=== PATIENT | male | born 1970 | race Caucasian/White ===

== ENCOUNTER 2021-05-28 07:13 | Day surgery (SDC) | payer BC, OTHER ==
[~2021-05-28] VITALS: Ht 172.7 cm; Wt 93.0 kg
[~2021-05-28 07:13] MED LIST: TYLENOL325 M1 PO
[2021-05-28 08:43] VITALS: BP 134/89
[2021-05-28 13:40] VITALS: BP 134/89
--- NOTE | 2021-05-30 17:07 | PATH ---
[facility] [address] [place] [address] PATHOLOGY RPT PROCEDURE Name: JULIOCESAR GUTIÉRREZ Room #: DEP [facility] M.R.#: [id number] Admission: 05/28/21 Date of : 74 Discharge: 05/28/21 Report #: [id number] Path Case #: [id number] LCA Accession Number: [id number] . 01 Material submitted: . elbow - RIGHT OLECRANON ENTHESEPHYTE. Modifiers: right . 01 Clinician provided ICD-10: S53.491A M25.521 . 01 Clinical history: . ARTHROSCOPY ELBOW APPLICATION SPLINT . 02 Diagnosis: Right olecranon enthesophyte, arthroscopy: - Fragment of reactive chondroosseous tissue. (IUV:pit; 05/30/2021) QTP 05/30/2021 1308 Local . 02 Electronically signed: . Keerthi Foster MD, Pathologist NPI- [id number] . 01 Gross description: . The specimen is received in formalin, labeled "Juliocesar Gutiérrez and right olecranon enthesephyte". It consists of a teague-white, irregular firm bony fragment measuring 2.0 x 1.6 x 0.6 cm. Financial Analyst Intern sections are submitted in A1 following decalcification. (MRF; 05/28/2021) MFE/MFE 05/28/2021 1729 Local . 02 Pathologist provided ICD-10: S53.491A, M25.521 . 02 CPT . 312833, [id number] Specimen Comment: A courtesy copy of this report has been sent to [phone] Specimen Comment: [id number] Specimen Comment: Report sent to / DR MYERS Performed at: [address] [id number] MD Ryan Esteves MD Phone: [phone] Performed at: [address] [address] PATHOLOGY RPT PROCEDURE Name: JULIOCESAR GUTIÉRREZ Room #: DEP [facility] Nilam#: [id number] Admission: 05/28/21 Date of : 74 Discharge: 05/28/21 Report #: [id number] Path Case #: [id number] [address] [id number] MD Keerthi Foster MD Phone: [phone]
--- NOTE | 2021-06-03 06:49 | O ---
[facility] [place] [address] OPERATIVE REPORT Name: CORDELL TALLEY Room #: DEP [facility] M.R.#: [id number] Admission: 05/28/21 Attend Phys: Anthony Stover MD Discharge: 05/28/21 Date of : 74 Report #: [id number] THIS REPORT FOR: cc: Sterling Aguilar,Sterling Mayorga,Anthony Dick MD ~ DATE OF SERVICE: 05/28/2021 SERVICE: Orthopedics. FACILITY: [facility]. SURGEON: Anthony Stover MD PUBLIC SAFETY DISPATCHER: Dolores Valdivia NP PREOPERATIVE DIAGNOSES: 1. Right elbow pain. 2. Right elbow lateral epicondylitis. 3. Right elbow synovitis. 4. Right elbow insertional triceps tendinopathy. 5. Right elbow olecranon and enthesophyte. POSTOPERATIVE DIAGNOSES: 1. Right elbow pain. 2. Right elbow lateral epicondylitis. 3. Right elbow synovitis. 4. Right elbow insertional triceps tendinopathy. 5. Right elbow olecranon and enthesophyte. PROCEDURES PERFORMED: 1. Right elbow arthroscopy with synovectomy and tennis elbow release. 2. Right elbow open triceps tendon debridement with exostectomy removal and primary triceps tendon repair. COMPLICATIONS: None. DRAINS: None. SPECIMENS: Olecranon exostosis/enthesophyte. FINDINGS: 1. Intact articular cartilage. 2. Extensive synovitis with Nirschl lesion of the common extensor tendon consistent with chronic lateral epicondylitis. 3. Triceps tendon debridement with primary repair with Arthrex knotless [facility] [address] [place] [address] OPERATIVE REPORT Name: CORDELL TALLEY Room #: DEP [facility] M.R.#: [id number] Admission: 05/28/21 Attend Phys: Anthony Stover MD Discharge: 05/28/21 Date of : 74 Report #: [id number] FiberTak suture anchor with #5 FiberWire repair. INDICATIONS: A 50-year-old gentleman with a multi-year history of persistent progressive right elbow pain that was multifocal and location and multifactorial in etiology. We treated him conservatively for some time and actually approximately a year and a half ago. He was planning on surgical treatment. Subsequently, his became ill and her health became higher priority and then elected to postpone any surgery during the COVID pandemic. He presented to the clinic again this year with worsening pain with activities interested in definitive surgical treatment. X-rays at this point showed that the enthesophyte at the olecranon had progressed in terms of size and density in continuity with the olecranon and a repeat MRI was obtained which showed continued tendinopathy of the triceps tendon insertion as well as common extensor tendon pathology consistent with chronic lateral epicondylitis. He is indicated for surgical treatment. The risks, benefits, alternatives and indications were discussed with him in detail. Risks include but not limited to pain, bleeding, infection, injuring nerves or blood vessels, persistent pain despite surgical intervention, failure of any repairs, progression of preexisting chondral injury, stiffness, need for further surgery as well as complications related to anesthesia. Despite the risks, he wished to proceed. DESCRIPTION OF PROCEDURE: After right upper extremity was correctly identified in the preoperative holding area, the operative extremity, the patient was taken to the operating room. General anesthesia was induced without complications and was turned into the lateral decubitus position with right side up, left side down, padded appropriately. Prophylactic antibiotics were administered in appropriate time. Tourniquet was applied to the right arm. Right upper extremity was then prepped and draped in standard sterile fashion. Timeout procedure was performed. Esmarch were used, tourniquet inflated to 250 mmHg. 30 mL of sterile saline was insufflated in the posterior aspect of the joint. The skin joe incision was made and a proximal anteromedial portal was established with a blunt trocar and fluid was seen to egress from the trocar. Scope was placed in the elbow and then in a percutaneous fashion, a tennis elbow portal was established under direct arthroscopic visualization, there was extensive synovitis in the elbow and the shaver was used to perform a synovectomy. The radial head and radiocapitellar joints were healthy and intact. The ulnohumeral articulation was normal as well. The annular ligament was intact, there was some thinning of the capsule laterally. An 11 blade was introduced in this tennis elbow portal and the capsule was released, allowing visualization of the ECRB tendon origin. There was tendinosis that was visible consistent with a chronic Nirschl lesion and the shaver was used to perform a tennis elbow release endoscopically until healthy tendon and muscle fibers were visualized. At this point, a proximal posterior portal was made in line with the planned triceps tendon insertion and then a proximal posterolateral portal [address] [address] OPERATIVE REPORT Name: CORDELL TALLEY Room #: DEP [facility] Oscar.Odilia.#: [id number] Admission: 05/28/21 Attend Phys: Anthony Stover MD Discharge: 05/28/21 Date of : 74 Report #: [id number] was established as well. The shaver was used to perform a synovectomy in the posterior aspect of the elbow. There was a small osteophyte on the tip of the olecranon. There was no impingement. Arthroscopic effusion was drained. Instruments were removed. Attention was turned towards the open portion of the procedure. A posterior approach was made to the elbow with a curvilinear incision as it coursed around the olecranon laterally. Full thickness skin flaps were developed. The olecranon bursa was incised and then the triceps tendon was exposed and dissection was taken down to the triceps insertion. The enthesophyte at the olecranon insertion was visualized. This was in continuity with the triceps tendon. The tendon was split in line with the fibers in the midline and then it was peeled back medially and laterally to allow exposure of the enthesophyte itself. Based on the appearance of the preoperative x-ray, I positioned an osteotome and then I resected this bone fragment was sent to pathology. A rongeur was used to complete the debridement of the olecranon and smooth surface. Wound was irrigated and then proceeded with triceps tendon repair. Arthrex knotless SutureTak anchor was used and was drilled into position on the proximal olecranon and good purchase was achieved. The #5 suture was then passed into the tendon and a running cerclage type suture was placed to close down the midline split, the triceps tendon and then it was run back down crossing pattern and then the stitch was passed through the locking mechanism in the Arthrex anchor. Excellent compression and repair strength was achieved and then used 2-0 Vicryl to close the peritenon layer as well as the olecranon bursa and then the skin was closed with 2-0 Vicryl followed by running subcuticular Monocryl. We did let the tourniquet down and confirmed hemostasis there during this process, we noted a venous tourniquet had formed based on the positioning and the tourniquet, so we released the tourniquet itself from its arm and then venous tourniquet was alleviated. The wound was closed. Dermabond was applied. Sterile dressing was applied followed by a long arm posterior splint. POSTOPERATIVE PLAN: We will remove the splint in approximately 10 days. We will plan to limit his active extension against force for 5 pounds or less for 4 weeks. Ten pound limit until 6 weeks and then progress accordingly. He will be allowed early active range of motion once the splint comes off for me to begin physical therapy at approximately two to three weeks postop. <ELECTRONICALLY SIGNED> By: Anthony Stover MD 06/03/21 0649 2104 Anthony Stover MD /nt
== END 2021-05-28 15:30 | disposition home or self-care (01) ==
LOC: OR 07:13 → TBA 07:13 → OR 08:09
PROVIDERS: ATTEND Orthopaedic Surgery Sports Medicine
DX: M25.521 Pain in right elbow (principal); S46.311A Strain of muscle, fascia and tendon of triceps, right arm, initial encounter; M77.11 Lateral epicondylitis, right elbow; M25.721 Osteophyte, right elbow; M65.821 Other synovitis and tenosynovitis, right upper arm; F17.210 Nicotine dependence, cigarettes, uncomplicated; Z98.890 Other specified postprocedural states; Z79.899 Other long term (current) drug therapy; Z20.822 Contact with and (suspected) exposure to COVID-19; X58.XXXA Exposure to other specified factors, initial encounter; Y93.89 Activity, other specified; Y92.89 Other specified places as the place of occurrence of the external cause; Y99.8 Other external cause status
CPT/HCPCS: 50010; 50101; 50172; 50386; 51739; 54118; 56524; 56527; 56528; 57092; 57103; 57178; 58577; 58590; 58962; 58963; 62110; 62900; 70005